=== PATIENT | female | born 1950 | race African-American/Black ===

== ENCOUNTER 2020-05-09 17:38 | Inpatient (IN) | payer OTHER ==
[~2020-05-09] VITALS: Ht 170.2 cm; Wt 110.7 kg
[2020-05-09] MEDS ORDERED: DEXAMETHASONE 4MG/ML 1ML VIAL IV ONE (18:15)
[2020-05-09] MEDS ORDERED: CEFTRIAXONE 1 G PREMIX 50 ML IV ONE (18:15)
[2020-05-09] MEDS ORDERED: LACTATED RINGERS 1,000 ML IV SCH (18:15)
[2020-05-09 20:40] LABS: CHLORIDE 100 mEq/L (98-107)
[2020-05-09 20:47] LABS: BASOPHILS % 0.1 % (0.0-2.0); EOSINOPHILS % 0.1 % (0.0-5.0); HEMOGLOBIN. 13.2 g/dL (12.0-16.0); LYMPHOCYTES % 7.1 % (20.0-50.0); MEAN CORPUSCULAR HEMOGLOBIN 27.6 pg (28.0-32.0); MEAN CORPUSCULAR VOLUME 85.8 fL (81.0-99.0); MEAN PLATELET VOLUME 9.7 fl (7.4-10.4); MONOCYTES % 6.5 % (2.0-8.0); NEUTROPHILS % 86.2 % (40.0-76.0); PLATELET 189 x1000/uL (130-400); RED BLOOD CELL COUNT 4.78 mill/uL (4.2-5.4); RED CELL DISTRIBUTION WIDTH 15.3 % (11.6-14.6)
[2020-05-10 20:00] VITALS: BP_SYST 142; BP_DIAS 82; BP_DIAS 84
[2020-05-10] MEDS ORDERED: CEFTRIAXONE 1 G PREMIX 50 ML IV SCH (23:30)
[2020-05-10] MEDS ORDERED: LOPERAMIDE HCL 2MG CAPSULE PO PRN (23:30)
[2020-05-10] MEDS ORDERED: ACETAMINOPHEN 325MG TABLET PO PRN (23:30)
[2020-05-11] VITALS: BP 155/84
[2020-05-11] MEDS: DEXT 5%/0.45% NACL 1000ML 1,000 ML IV SCH ×2 (01:25→14:00)
[2020-05-11] MEDS: CEFTRIAXONE 1,000 MG in DEXTROSE 5% WATER 50 ML IV SCH (01:25)
[2020-05-11] MEDS: AZITHROMYCIN 500 MG in DEXT 5% WATER 250 ML IV SCH (02:12)
[2020-05-11 04:00] VITALS: BP 133/84
[2020-05-11] MEDS: ASCORBIC ACID 500 MG TABLET PO SCH ×3 (07:12→20:47)
[2020-05-11 08:00] VITALS: BP 176/92
[2020-05-11] MEDS ORDERED: FAMOTIDINE 20MG TABLET PO SCH (09:00)
[2020-05-11] MEDS ORDERED: LIDOCAINE HCL/PF 1% 2ML VIAL ONE (09:00)
[2020-05-11 09:06] LABS: HEMATOCRIT. 35.9 % (36.0-48.0); HEMOGLOBIN. 11.8 g/dL (12.0-16.0); MEAN CORPUSCULAR HEMOGLOBIN 27.9 pg (28.0-32.0); MEAN CORPUSCULAR VOLUME 85.1 fL (81.0-99.0); MEAN PLATELET VOLUME 9.9 fl (7.4-10.4); PLATELET 234 x1000/uL (130-400); RED BLOOD CELL COUNT 4.22 mill/uL (4.2-5.4); RED CELL DISTRIBUTION WIDTH 14.5 % (11.6-14.6)
[2020-05-11] MEDS: FAMOTIDINE 20MG TABLET PO SCH (09:58)
[2020-05-11] MEDS: LISINOPRIL 20MG TABLET PO SCH (09:58)
[2020-05-11] MEDS: ZINC SULFATE 220 MG ( 50 ) CAPSULE PO SCH (09:58)
[2020-05-11] MEDS: CHOLECALCIFEROL (D3) 1000 UNIT TABLET PO SCH (09:58)
[2020-05-11] MEDS: ENOXAPARIN 30MG/0.3ML SYR SUBCUT SCH ×2 (09:59→20:47)
[2020-05-11] MEDS: DEXAMETHASONE 4MG/ML 1ML VIAL IV SCH (09:59)
[2020-05-11] MEDS: ASPIRIN 81MG TABLET PO SCH (09:59)
[2020-05-11 10:01] LABS: T4 FREE 1.18 ng/dL (0.76-1.46)
[2020-05-11 13:23] VITALS: BP 141/81
[2020-05-11 16:50] VITALS: BP 143/78
[2020-05-11] MEDS ORDERED: HYDRALAZINE 20MG/ML VIAL IV PRN (17:00)
[2020-05-11] MEDS ORDERED: LORAZEPAM 2MG/ML CPJ IV PRN (17:00)
[2020-05-11] MEDS ORDERED: HYDROCODONE/ACETAMINOPHEN 5/325MG TABLET PO PRN (17:00)
[2020-05-11] MEDS ORDERED: DIPHENHYDRAMINE 50MG/ML VIAL IV PRN (17:00)
[2020-05-11 18:01] LABS: BG BASE EXCESS 2.9 mmol/L (-2.0-2.0); BG CARBOXYHEMOGLOBIN 0.2 % (0.5-1.5); BG DEOXYHEMOGLOBIN 8.1 % (0.0-5.0); BG FRACTION INSPIRED OXYGEN 21; BG HCO3 ACT 25.6 mmol/L (22.0-26.0); BG METHEMOGLOBIN 0.1 % (0.0-1.5); BG OXYGEN SATURATION 91.9 % (92.0-98.5); BG OXYHEMOGLOBIN 91.6 % (94.0-97.0); BG PCO2 33.3 mmHg (35.0-45.0); BG PH 7.504 (7.350-7.450); BG PO2 63.9 mmHg (75.0-100.0); BG SAMPLE SITE RIGHT BRACHIAL; BG TOTAL HEMOGLOBIN 12.8 g/dL (12.0-18.0); BG VENT MODE ROOM AIR
[2020-05-11 20:00] VITALS: BP 137/83
[2020-05-11 22:31] LABS: PLATELET ESTIMATE NORMAL
[2020-05-11] MEDS ORDERED: TRIA1TAB92 PO (23:04)
[2020-05-11] MEDS ORDERED: LISI-604 PO (23:04)
[2020-05-11] MEDS ORDERED: ASPI-1497 PO (23:04)
[2020-05-12] VITALS: BP 132/81
[2020-05-12] MEDS: CEFTRIAXONE 1,000 MG in DEXTROSE 5% WATER 50 ML IV SCH (01:22)
[2020-05-12] MEDS: AZITHROMYCIN 500 MG in DEXT 5% WATER 250 ML IV SCH (02:03)
[2020-05-12 04:00] VITALS: BP 132/81
[2020-05-12] MEDS: ASCORBIC ACID 500 MG TABLET PO SCH ×3 (06:09→22:31)
[2020-05-12 06:19] LABS: HEMATOCRIT. 36.3 % (36.0-48.0); HEMOGLOBIN. 11.7 g/dL (12.0-16.0); MEAN CORPUSCULAR HEMOGLOBIN 27.4 pg (28.0-32.0); MEAN CORPUSCULAR VOLUME 85.4 fL (81.0-99.0); MEAN PLATELET VOLUME 10.6 fl (7.4-10.4); PLATELET 287 x1000/uL (130-400); RED BLOOD CELL COUNT 4.26 mill/uL (4.2-5.4); RED CELL DISTRIBUTION WIDTH 14.6 % (11.6-14.6)
[2020-05-12 08:00] VITALS: BP 135/92
[2020-05-12] MEDS: ASPIRIN 81MG TABLET PO SCH (09:03)
[2020-05-12] MEDS: FAMOTIDINE 20MG TABLET PO SCH (09:03)
[2020-05-12] MEDS: ZINC SULFATE 220 MG ( 50 ) CAPSULE PO SCH (09:03)
[2020-05-12] MEDS: CHOLECALCIFEROL (D3) 1000 UNIT TABLET PO SCH (09:03)
[2020-05-12] MEDS: ENOXAPARIN 30MG/0.3ML SYR SUBCUT SCH (09:04)
[2020-05-12] MEDS: DEXAMETHASONE 4MG/ML 1ML VIAL IV SCH (09:04)
[2020-05-12] MEDS: LISINOPRIL 20MG TABLET PO SCH (09:07)
[2020-05-12 12:00] VITALS: BP 150/88
[2020-05-12] MEDS: ALBUTEROL 6.7GM HFA INHALER ORI SCH ×2 (13:15→17:25)
[2020-05-12 13:47] VITALS: BP 150/88
[2020-05-12 16:00] VITALS: BP 145/78
[2020-05-12] MEDS: ENOXAPARIN 120MG/0.8ML SYR SUBCUT SCH (18:02)
[2020-05-13] VITALS: BP 153/90
[2020-05-13 00:09] LABS: PLATELET ESTIMATE NORMAL
[2020-05-13] MEDS: CEFTRIAXONE 1,000 MG in DEXTROSE 5% WATER 50 ML IV SCH (01:12)
[2020-05-13] MEDS: AZITHROMYCIN 500 MG in DEXT 5% WATER 250 ML IV SCH (01:12)
[2020-05-13] MEDS: ALBUTEROL 6.7GM HFA INHALER ORI SCH ×2 (01:13→06:45)
[2020-05-13 04:00] VITALS: BP 139/89
[2020-05-13] MEDS: ASCORBIC ACID 500 MG TABLET PO SCH ×2 (06:44→09:55)
[2020-05-13] MEDS: ENOXAPARIN 120MG/0.8ML SYR SUBCUT SCH (06:45)
[2020-05-13 06:46] LABS: INR 1.2; PROTHROMBIN TIME 12.4 sec (9.6-11.0)
[2020-05-13 08:00] VITALS: BP 160/82
[2020-05-13] MEDS: LISINOPRIL 20MG TABLET PO SCH (09:56)
[2020-05-13] MEDS: CHOLECALCIFEROL (D3) 1000 UNIT TABLET PO SCH (09:56)
[2020-05-13] MEDS: ASPIRIN 81MG TABLET PO SCH (09:56)
[2020-05-13] MEDS: DEXAMETHASONE 4MG/ML 1ML VIAL IV SCH (09:56)
[2020-05-13] MEDS: ZINC SULFATE 220 MG ( 50 ) CAPSULE PO SCH (09:56)
[2020-05-13] MEDS: FAMOTIDINE 20MG TABLET PO SCH (09:56)
[2020-05-13 12:00] VITALS: BP 134/76
[2020-05-13] MEDS ORDERED: ALBU90AE INH (13:28)
[2020-05-13] MEDS ORDERED: APIX5TAB MT (13:28)
[2020-05-13] MEDS ORDERED: LEVO500T2 MT (13:28)
[2020-05-13] MEDS ORDERED: ZINC220T4 MT (13:28)
[2020-05-13] MEDS ORDERED: CHOL3000 PO (13:28)
[2020-05-13] MEDS ORDERED: ASCO-339 MT (13:28)
[2020-05-13] MEDS ORDERED: FAMO-135 PO (13:28)
[2020-05-13 16:00] VITALS: BP 165/85
[2020-05-13 18:51] VITALS: BP 165/85
== END 2020-05-13 20:00 | disposition home or self-care (01) | DRG 871 ==
LOC: ER 17:38 → 8WST 23:14 → EDBEDREQSVC 05-10 07:54 → ENRESERV 05-10 17:14
PROVIDERS: ADMIT Ophthalmology; ATTEND Ophthalmology
DX: A41.89 Other specified sepsis (principal); U07.1 COVID-19; J12.82 Pneumonia due to coronavirus disease 2019; D68.59 Other primary thrombophilia; E87.2 Acidosis; N17.9 Acute kidney failure, unspecified; R65.20 Severe sepsis without septic shock; R74.01 Elevation of levels of liver transaminase levels; R06.03 Acute respiratory distress; D64.9 Anemia, unspecified; I12.9 Hypertensive chronic kidney disease with stage 1 through stage 4 chronic kidney disease, or unspecified chronic kidney disease; N18.9 Chronic kidney disease, unspecified; Z79.01 Long term (current) use of anticoagulants; Z79.899 Other long term (current) drug therapy; Z90.710 Acquired absence of both cervix and uterus; Z92.21 Personal history of antineoplastic chemotherapy; Z85.42 Personal history of malignant neoplasm of other parts of uterus
CPT/HCPCS: 36415; 36600; 71045; 80048; 80076; 82375; 82728; 82805; 83036; 83605; 83615; 84145; 84439; 84443; 84484; 85025; 85379; 86141; 93005; 93970; 96365; 96367; 96375; 99285; J0456; J0696; J1100; J1650; J3490; J7060; U0003